=== PATIENT | male | born 1980 | race African-American/Black ===

== ENCOUNTER 2017-05-14 12:17 | Inpatient (IN) | payer MEDICAID ==
[~2017-05-14] VITALS: Ht 193 cm; Wt 122.5 kg
[~2017-05-14 12:17] MED LIST: QUET400T12 PO
[2017-05-14 13:47] LABS: BASOPHILS % (AUTO) 1.3 % (0.0-2.0); EOSINOPHILS % (AUTO) 0.4 % (1.0-6.0); HEMATOCRIT 46.2 % (41-53); HEMOGLOBIN 15.3 g/dL (13.5-17.5); LYMPHOCYTES # (AUTO) 2.2 K/uL (1.0-4.8); LYMPHOCYTES % (AUTO) 39.5 % (22.0-44.0); MEAN CORPUSCULAR HEMOGLOBIN 28.3 pg (26.0-34.0); MEAN CORPUSCULAR HGB CONC 33.1 G/dL (31.0-37.0); MEAN CORPUSCULAR VOLUME 86 fL (80-100); MONOCYTES # (AUTO) 0.7 K/uL (0.1-1.0); MONOCYTES % (AUTO) 11.7 % (2.0-9.0); NEUTROPHILS # (AUTO) 2.6 K/uL (1.8-7.7); NEUTROPHILS % (AUTO) 47.1 % (40.0-70.0); PLATELET COUNT (AUTO) 200 K/uL (150-450); RED BLOOD CELL COUNT(AUTO) 5.41 MIL/uL (4.50-5.90); RED CELL DISTRIBUTION WIDTH 14.1 % (11.5-14.5)
[2017-05-14 13:58] LABS: ANION GAP 10 mmol/L (8-16); CALCIUM, TOTAL 8.9 mg/dL (8.8-10.5); CARBON DIOXIDE 26 mmol/L (22-29); CHLORIDE 98 mmol/L (98-107); GLOMERULAR FILTR. RATE CALC 59 mL/min (>60); GLUCOSE,RANDOM 104 mg/dL (70-110); POTASSIUM 4.4 mmol/L (3.5-5.1); SODIUM SERUM 134 mmol/L (136-145); UREA NITROGEN, BLOOD 21 mg/dL (7-18)
[2017-05-14 14:05] LABS: ALANINE AMINOTRANSFERASE 95 U/L (12-78); ALBUMIN 3.6 g/dL (3.4-5.0); ALKALINE PHOSPHATASE 52 U/L (46-116); ASPARTATE AMINOTRANSFERASE 43 U/L (15-37); BILIRUBIN,TOTAL 2.5 mg/dL (0.1-1.0); TOTAL PROTEIN, SERUM 7.1 g/dL (6.4-8.2)
[2017-05-14 14:09] LABS: AMPHET/METH SCREEN,URINE POSITIVE (NEGATIVE); BARBITURATE SCREEN, URINE NEGATIVE (NEGATIVE); BENZODIAZEPINES SCREEN,URINE NEGATIVE (NEGATIVE); CANNABINOID SCREEN,URINE NEGATIVE (NEGATIVE); COCAINE SCREEN,URINE NEGATIVE (NEGATIVE); METHADONE SCREEN, URINE NEGATIVE (NEGATIVE); OPIATE SCREEN,URINE NEGATIVE (NEGATIVE)
[2017-05-14 14:10] LABS: PHENCYCLIDINE SCREEN,URINE NEGATIVE (NEGATIVE)
[2017-05-14] MEDS ORDERED: DIVA250T4 PO (14:44)
[2017-05-14] MEDS: LORazepam 2 MG TABLET PO PRN (17:22)
[2017-05-14] MEDS: HALOPERIDOL 5 MG TABLET PO PRN (20:59)
[2017-05-15 07:03] VITALS: BP 114/75
[2017-05-15 08:30] VITALS: BP 106/74
[2017-05-15] MEDS: HALOPERIDOL 5 MG TABLET PO PRN (08:30)
[2017-05-15] MEDS: LORazepam 2 MG TABLET PO PRN ×2 (08:30→17:39)
[2017-05-15] MEDS ORDERED: QUET200T PO (13:34)
[2017-05-15] MEDS ORDERED: DIVA500T35 PO (13:34)
[2017-05-15 16:14] VITALS: BP 116/73
[2017-05-15] MEDS: QUEtiapine FUMARATE 300 MG TABLET PO SCH (20:51)
[2017-05-15] MEDS: ZOLPIDEM TARTRATE 10 MG TABLET PO PRN (20:51)
[2017-05-16 06:44] VITALS: BP 125/66
[2017-05-16 08:32] VITALS: BP 138/79
[2017-05-16] MEDS: LORazepam 2 MG TABLET PO PRN ×2 (08:39→17:09)
[2017-05-16 08:57] LABS: FREE T4 (FREE THYROXINE) 1.19 ng/dL (0.76-1.46); THYROID STIMULATING HORMONE 0.67 uIU/mL (0.36-3.74)
[2017-05-16 16:00] VITALS: BP 130/75
[2017-05-16] MEDS: QUEtiapine FUMARATE 300 MG TABLET PO SCH (20:41)
[2017-05-16] MEDS: ZOLPIDEM TARTRATE 10 MG TABLET PO PRN (20:42)
[2017-05-17 06:01] VITALS: BP 115/70
[2017-05-17 08:29] VITALS: BP 122/74
[2017-05-17 16:00] VITALS: BP 114/66
[2017-05-17] MEDS: LORazepam 2 MG TABLET PO PRN (17:34)
[2017-05-17] MEDS ORDERED: ALBUTEROL SULFATE HFA 90 MCG/PUFF 8 GM INHALER IH PRN (18:15)
[2017-05-17] MEDS: ZOLPIDEM TARTRATE 10 MG TABLET PO PRN (20:43)
[2017-05-17] MEDS: QUEtiapine FUMARATE 300 MG TABLET PO SCH (20:43)
[2017-05-18 02:33] VITALS: BP 116/69
[2017-05-18 08:43] VITALS: BP 124/80
[2017-05-18 16:00] VITALS: BP 121/87
[2017-05-18] MEDS: LORazepam 2 MG TABLET PO PRN (17:43)
[2017-05-18] MEDS: ZOLPIDEM TARTRATE 10 MG TABLET PO PRN (21:24)
[2017-05-18] MEDS: QUEtiapine FUMARATE 300 MG TABLET PO SCH (21:24)
[2017-05-19 05:20] VITALS: BP 127/85
[2017-05-19 08:15] VITALS: BP 119/84
[2017-05-19] MEDS: HALOPERIDOL 5 MG TABLET PO PRN (16:30)
[2017-05-19] MEDS: QUEtiapine FUMARATE 200 MG TABLET PO SCH (16:30)
[2017-05-19] MEDS: LORazepam 2 MG TABLET PO PRN (16:30)
[2017-05-19 16:38] VITALS: BP 117/70
[2017-05-20 06:30] VITALS: BP 109/75
[2017-05-20 08:17] VITALS: BP 126/80
[2017-05-20] MEDS: QUEtiapine FUMARATE 200 MG TABLET PO SCH ×3 (09:20→17:08)
[2017-05-20 16:07] VITALS: BP 113/69
[2017-05-20] MEDS: LORazepam 2 MG TABLET PO PRN (17:08)
[2017-05-20] MEDS: HALOPERIDOL 5 MG TABLET PO PRN (17:08)
[2017-05-20] MEDS: ZOLPIDEM TARTRATE 10 MG TABLET PO PRN (20:58)
[2017-05-21 06:48] VITALS: BP 121/78
[2017-05-21 08:36] VITALS: BP 118/65
[2017-05-21] MEDS: QUEtiapine FUMARATE 200 MG TABLET PO SCH ×3 (09:00→17:00)
[2017-05-21] MEDS ORDERED: PNEUMOCOCCAL VACCINE POLYVALENT 0.5 ML VIAL [PPSV23] IM ONE (15:15)
== END 2017-05-21 21:21 | disposition short-term general hospital (02) | DRG 750 ==
LOC: EMS 12:18 → B2S 15:33 → B3A 05-15 09:07
PROVIDERS: ATTEND Psychiatry & Neurology Child & Adolescent Psychiatry
PROC: 3E0234Z Introduction of Serum, Toxoid and Vaccine into Muscle, Percutaneous Approach (ICD-10-PCS; principal; 2017-05-21)
DX: F25.9 Schizoaffective disorder, unspecified (principal); I11.0 Hypertensive heart disease with heart failure; I50.9 Heart failure, unspecified; F15.10 Other stimulant abuse, uncomplicated; F17.200 Nicotine dependence, unspecified, uncomplicated; F23 Brief psychotic disorder; F41.9 Anxiety disorder, unspecified; F31.9 Bipolar disorder, unspecified; Z91.14 Patient's other noncompliance with medication regimen; Z91.5 Personal history of self-harm; Z23 Encounter for immunization
CPT/HCPCS: 80074; 82652; 84439; 84443; 99285; 99406; G0480; J3535

== ENCOUNTER 2017-05-21 09:58 | Inpatient (IN) | payer MEDICAID ==
[~2017-05-21] VITALS: Ht 190.5 cm; Wt 130.7 kg
[~2017-05-21 09:58] MED LIST changes: +DIVA500T35 PO; +QUET200T PO; -QUET400T12 PO
[2017-05-21 10:28] LABS: BASOPHILS % (AUTO) 0.9 % (0.0-2.0); HEMATOCRIT 42.6 % (41-53); LYMPHOCYTES % (AUTO) 33.9 % (22.0-44.0); MEAN CORPUSCULAR HEMOGLOBIN 28.2 pg (26.0-34.0); MEAN CORPUSCULAR HGB CONC 32.8 G/dL (31.0-37.0); MEAN CORPUSCULAR VOLUME 86 fL (80-100); MONOCYTES # (AUTO) 0.9 K/uL (0.1-1.0); MONOCYTES % (AUTO) 14.9 % (2.0-9.0); NEUTROPHILS # (AUTO) 2.9 K/uL (1.8-7.7); NEUTROPHILS % (AUTO) 49.3 % (40.0-70.0); PLATELET COUNT (AUTO) 179 K/uL (150-450); RED BLOOD CELL COUNT(AUTO) 4.95 MIL/uL (4.50-5.90); RED CELL DISTRIBUTION WIDTH 14.2 % (11.5-14.5)
[2017-05-21 10:40] LABS: ANION GAP 11 mmol/L (8-16); CALCIUM, TOTAL 8.2 mg/dL (8.8-10.5); CARBON DIOXIDE 19 mmol/L (22-29); CHLORIDE 109 mmol/L (98-107); CREATININE 1.25 mg/dL (0.60-1.30); GLOMERULAR FILTR. RATE CALC > 60 mL/min (>60); GLUCOSE,RANDOM 107 mg/dL (70-110); POTASSIUM 4.5 mmol/L (3.5-5.1); SODIUM SERUM 139 mmol/L (136-145); UREA NITROGEN, BLOOD 23 mg/dL (7-18)
[2017-05-21 10:46] LABS: ALANINE AMINOTRANSFERASE 236 U/L (12-78); ALBUMIN 3.1 g/dL (3.4-5.0); ALKALINE PHOSPHATASE 74 U/L (46-116); ASPARTATE AMINOTRANSFERASE 121 U/L (15-37); BILIRUBIN,TOTAL 2.4 mg/dL (0.1-1.0); TOTAL PROTEIN, SERUM 6.5 g/dL (6.4-8.2)
[2017-05-21 11:02] LABS: B-TYPE NATRIURETIC PEPTIDE 551 pg/mL (0-100)
[2017-05-21 11:19] LABS: INFLUENZA TYPE A NEGATIVE FOR TYPE A (NEGATIVE); INFLUENZA TYPE B NEGATIVE FOR TYPE B (NEGATIVE)
[2017-05-21] MEDS ORDERED: IOVERSOL 350 MG/ML 150 ML VIAL ONE (11:22)
[2017-05-21 12:18] LABS: THYROID STIMULATING HORMONE 2.63 uIU/mL (0.36-3.74)
[2017-05-21] MEDS ORDERED: ACETAMINOPHEN 325 MG TABLET PO PRN ×2 (13:00→13:15)
[2017-05-21] MEDS ORDERED: FUROSEMIDE 40 MG/4 ML VIAL IVP ONE (13:00)
[2017-05-21] MEDS ORDERED: 0.9% SODIUM CHLORIDE 10 ML SYRINGE IVP PRN (13:00)
[2017-05-21] MEDS ORDERED: ONDANSETRON HCL 4 MG/2 ML VIAL IVP PRN ×2 (13:00→13:15)
[2017-05-21] MEDS ORDERED: BISACODYL 10 MG RECTAL RECTAL SUPPOSITORY PR PRN (13:15)
[2017-05-21] MEDS ORDERED: MAGNESIUM HYDROXIDE SUSPENSION 30 ML UDCUP PO PRN (13:15)
[2017-05-21 14:32] VITALS: BP 121/74
[2017-05-21] MEDS: HEPARIN SODIUM,PORCINE 5,000 UNITS/ML VIAL SQ SCH (16:50)
[2017-05-21 19:37] VITALS: BP 133/94
[2017-05-21] MEDS ORDERED: OXYGEN THERAPY IH SCH (20:00)
[2017-05-21] MEDS: FUROSEMIDE 20 MG/2 ML VIAL IVP SCH (20:03)
[2017-05-21] MEDS: DOCUSATE SODIUM 100 MG CAPSULE PO SCH ×2 (20:03→20:06)
[2017-05-21 23:30] VITALS: BP 125/72
[2017-05-22 05:05] VITALS: BP 127/89
[2017-05-22 07:36] VITALS: BP 126/78
[2017-05-22] MEDS: DOCUSATE SODIUM 100 MG CAPSULE PO SCH ×2 (08:55→20:32)
[2017-05-22] MEDS: PANTOPRAZOLE SODIUM 40 MG DR TABLET PO SCH (08:55)
[2017-05-22] MEDS: HEPARIN SODIUM,PORCINE 5,000 UNITS/ML VIAL SQ SCH ×4 (08:55→23:43)
[2017-05-22] MEDS: FUROSEMIDE 20 MG/2 ML VIAL IVP SCH ×2 (08:55→20:33)
[2017-05-22 11:34] VITALS: BP 118/76
[2017-05-22 15:21] VITALS: BP 122/82
[2017-05-22] MEDS: LISINOPRIL 5 MG TABLET PO SCH (18:20)
[2017-05-22 19:15] VITALS: BP 133/60
[2017-05-22] MEDS: CARVEDILOL 6.25 MG TABLET PO SCH (20:32)
[2017-05-22 22:40] VITALS: BP 126/78
[2017-05-22] MEDS ORDERED: 0.9% SODIUM CHLORIDE 5 ML NEB SOLUTION NEB ONE (22:58)
[2017-05-22] MEDS ORDERED: LEVALBUTEROL HCL 1.25 MG/0.5 ML NEB SOLUTION NEB PRN (23:00)
[2017-05-22 23:08] LABS: GLUCOMETER DEV NAME(LOC) 5N 1N; GLUCOSE,POINT OF CARE 114 MG/DL (70-110)
[2017-05-22 23:37] LABS: CREATININE 1.93 mg/dL (0.60-1.30); POTASSIUM 4.7 mmol/L (3.5-5.1)
[2017-05-22] MEDS: ZOLPIDEM TARTRATE 5 MG TABLET PO PRN (23:44)
[2017-05-23 04:57] VITALS: BP 122/69
[2017-05-23 06:09] LABS: EOSINOPHILS % (AUTO) 0.8 % (1.0-6.0); HEMOGLOBIN 13.7 g/dL (13.5-17.5); LYMPHOCYTES # (AUTO) 1.8 K/uL (1.0-4.8); LYMPHOCYTES % (AUTO) 27.7 % (22.0-44.0); MEAN CORPUSCULAR HEMOGLOBIN 27.8 pg (26.0-34.0); MEAN CORPUSCULAR HGB CONC 32.6 G/dL (31.0-37.0); MEAN CORPUSCULAR VOLUME 85 fL (80-100); MONOCYTES # (AUTO) 0.8 K/uL (0.1-1.0); MONOCYTES % (AUTO) 11.9 % (2.0-9.0); NEUTROPHILS # (AUTO) 3.8 K/uL (1.8-7.7); NEUTROPHILS % (AUTO) 58.6 % (40.0-70.0); PLATELET COUNT (AUTO) 188 K/uL (150-450); RED BLOOD CELL COUNT(AUTO) 4.92 MIL/uL (4.50-5.90); RED CELL DISTRIBUTION WIDTH 14.5 % (11.5-14.5)
[2017-05-23 07:00] LABS: CALCIUM, TOTAL 8.5 mg/dL (8.8-10.5); CREATININE 1.7 mg/dL (0.60-1.30); POTASSIUM 4.7 mmol/L (3.5-5.1)
[2017-05-23] MEDS: HEPARIN SODIUM,PORCINE 5,000 UNITS/ML VIAL SQ SCH ×2 (08:55→16:32)
[2017-05-23] MEDS: CARVEDILOL 6.25 MG TABLET PO SCH ×2 (08:58→20:54)
[2017-05-23] MEDS: PANTOPRAZOLE SODIUM 40 MG DR TABLET PO SCH (08:58)
[2017-05-23] MEDS: LISINOPRIL 5 MG TABLET PO SCH (08:58)
[2017-05-23] MEDS: FUROSEMIDE 20 MG/2 ML VIAL IVP SCH ×2 (08:58→20:54)
[2017-05-23] MEDS: DOCUSATE SODIUM 100 MG CAPSULE PO SCH ×2 (08:58→20:54)
[2017-05-23 11:07] VITALS: BP 116/74
[2017-05-23 15:27] VITALS: BP 113/85
[2017-05-23 19:10] VITALS: BP 119/69
[2017-05-23 21:35] LABS: AMPHET/METH SCREEN,URINE NEGATIVE (NEGATIVE); BARBITURATE SCREEN, URINE NEGATIVE (NEGATIVE); BENZODIAZEPINES SCREEN,URINE NEGATIVE (NEGATIVE); CANNABINOID SCREEN,URINE NEGATIVE (NEGATIVE); COCAINE SCREEN,URINE NEGATIVE (NEGATIVE); METHADONE SCREEN, URINE NEGATIVE (NEGATIVE); OPIATE SCREEN,URINE NEGATIVE (NEGATIVE)
[2017-05-23 21:37] LABS: PHENCYCLIDINE SCREEN,URINE NEGATIVE (NEGATIVE)
[2017-05-23 23:19] VITALS: BP 108/74
[2017-05-24 04:56] VITALS: BP 112/76
[2017-05-24 07:17] VITALS: BP 97/61
[2017-05-24 07:26] LABS: ALBUMIN 2.9 g/dL (3.4-5.0); BILIRUBIN,TOTAL 4.1 mg/dL (0.1-1.0); CALCIUM, TOTAL 8.6 mg/dL (8.8-10.5); CREATININE 1.76 mg/dL (0.60-1.30); POTASSIUM 4.7 mmol/L (3.5-5.1); TOTAL PROTEIN, SERUM 5.9 g/dL (6.4-8.2)
[2017-05-24 07:37] LABS: BASOPHILS % (AUTO) 0.6 % (0.0-2.0); EOSINOPHILS % (AUTO) 0.4 % (1.0-6.0); HEMATOCRIT 43.6 % (41-53); HEMOGLOBIN 14.4 g/dL (13.5-17.5); LYMPHOCYTES # (AUTO) 1.8 K/uL (1.0-4.8); LYMPHOCYTES % (AUTO) 28.1 % (22.0-44.0); MEAN CORPUSCULAR VOLUME 85 fL (80-100); MONOCYTES # (AUTO) 0.8 K/uL (0.1-1.0); MONOCYTES % (AUTO) 13.4 % (2.0-9.0); NEUTROPHILS # (AUTO) 3.6 K/uL (1.8-7.7); NEUTROPHILS % (AUTO) 57.5 % (40.0-70.0); PLATELET COUNT (AUTO) 185 K/uL (150-450); RED BLOOD CELL COUNT(AUTO) 5.13 MIL/uL (4.50-5.90); RED CELL DISTRIBUTION WIDTH 14.2 % (11.5-14.5)
[2017-05-24] MEDS: FUROSEMIDE 20 MG/2 ML VIAL IVP SCH ×2 (08:09→20:44)
[2017-05-24] MEDS: PANTOPRAZOLE SODIUM 40 MG DR TABLET PO SCH (08:09)
[2017-05-24] MEDS: DOCUSATE SODIUM 100 MG CAPSULE PO SCH ×2 (08:10→20:45)
[2017-05-24] MEDS: HEPARIN SODIUM,PORCINE 5,000 UNITS/ML VIAL SQ SCH ×4 (08:10→23:22)
[2017-05-24] MEDS: LISINOPRIL 5 MG TABLET PO SCH (08:19)
[2017-05-24] MEDS: CARVEDILOL 6.25 MG TABLET PO SCH ×2 (08:19→20:44)
[2017-05-24 11:15] VITALS: BP 122/76
[2017-05-24] MEDS ORDERED: MEBROFENIN TC99M/MCL ISOTOPE 1 EA INJ INJ ONE (12:35)
[2017-05-24 19:19] VITALS: BP 98/56
[2017-05-24 20:41] VITALS: BP 107/80
[2017-05-24 23:18] VITALS: BP 130/73
[2017-05-25 04:32] VITALS: BP 117/78
[2017-05-25 06:40] LABS: BASOPHILS % (AUTO) 1.1 % (0.0-2.0); EOSINOPHILS % (AUTO) 0.5 % (1.0-6.0); HEMOGLOBIN 13.9 g/dL (13.5-17.5); LYMPHOCYTES # (AUTO) 2.8 K/uL (1.0-4.8); LYMPHOCYTES % (AUTO) 36.2 % (22.0-44.0); MEAN CORPUSCULAR HGB CONC 33.1 G/dL (31.0-37.0); MEAN CORPUSCULAR VOLUME 85 fL (80-100); MONOCYTES # (AUTO) 1.1 K/uL (0.1-1.0); MONOCYTES % (AUTO) 13.9 % (2.0-9.0); NEUTROPHILS # (AUTO) 3.7 K/uL (1.8-7.7); NEUTROPHILS % (AUTO) 48.3 % (40.0-70.0); PLATELET COUNT (AUTO) 198 K/uL (150-450); RED BLOOD CELL COUNT(AUTO) 4.98 MIL/uL (4.50-5.90); RED CELL DISTRIBUTION WIDTH 14.5 % (11.5-14.5)
[2017-05-25 06:55] LABS: CALCIUM, TOTAL 8.3 mg/dL (8.8-10.5); CREATININE 1.69 mg/dL (0.60-1.30); POTASSIUM 3.7 mmol/L (3.5-5.1)
[2017-05-25 07:28] VITALS: BP 121/82
[2017-05-25] MEDS: PANTOPRAZOLE SODIUM 40 MG DR TABLET PO SCH (07:41)
[2017-05-25] MEDS: CARVEDILOL 6.25 MG TABLET PO SCH (07:41)
[2017-05-25] MEDS: DOCUSATE SODIUM 100 MG CAPSULE PO SCH ×2 (07:41→20:10)
[2017-05-25] MEDS: LISINOPRIL 5 MG TABLET PO SCH (07:41)
[2017-05-25] MEDS: FUROSEMIDE 20 MG/2 ML VIAL IVP SCH (07:47)
[2017-05-25] MEDS: HEPARIN SODIUM,PORCINE 5,000 UNITS/ML VIAL SQ SCH ×2 (07:47→16:00)
[2017-05-25 15:52] VITALS: BP 119/91
[2017-05-25] MEDS: LORazepam 2 MG/ML VIAL IVP PRN (17:29)
[2017-05-25 19:58] VITALS: BP 134/64
[2017-05-25] MEDS: FUROSEMIDE 40 MG TABLET PO SCH (20:10)
[2017-05-25] MEDS: CARVEDILOL 12.5 MG TABLET PO SCH (20:11)
[2017-05-25 23:27] VITALS: BP 145/63
[2017-05-26] MEDS: LORazepam 2 MG/ML VIAL IVP PRN ×2 (01:24→20:27)
[2017-05-26 07:27] LABS: ALBUMIN 2.9 g/dL (3.4-5.0); BILIRUBIN,TOTAL 4.1 mg/dL (0.1-1.0); CALCIUM, TOTAL 8.3 mg/dL (8.8-10.5); CREATININE 1.65 mg/dL (0.60-1.30); POTASSIUM 4.3 mmol/L (3.5-5.1)
[2017-05-26] MEDS: HEPARIN SODIUM,PORCINE 5,000 UNITS/ML VIAL SQ SCH ×3 (08:00→16:00)
[2017-05-26 08:05] VITALS: BP 95/65
[2017-05-26] MEDS: DOCUSATE SODIUM 100 MG CAPSULE PO SCH ×2 (08:32→20:26)
[2017-05-26] MEDS: FUROSEMIDE 40 MG TABLET PO SCH ×2 (08:32→20:26)
[2017-05-26] MEDS: PANTOPRAZOLE SODIUM 40 MG DR TABLET PO SCH (08:33)
[2017-05-26] MEDS: CARVEDILOL 12.5 MG TABLET PO SCH ×2 (09:00→20:26)
[2017-05-26] MEDS: LISINOPRIL 5 MG TABLET PO SCH (09:00)
[2017-05-26 11:26] VITALS: BP 141/61
[2017-05-26 15:23] VITALS: BP 109/80
[2017-05-26 19:37] VITALS: BP 124/60
[2017-05-26] MEDS: MORPHINE SULFATE 2 MG/ML SYRINGE IVP PRN (20:26)
[2017-05-27] VITALS (7 sets, daily range): BP systolic 100–133; BP diastolic 60–86
[2017-05-27] MEDS: MORPHINE SULFATE 2 MG/ML SYRINGE IVP PRN ×2 (03:49→11:04)
[2017-05-27] MEDS: HEPARIN SODIUM,PORCINE 5,000 UNITS/ML VIAL SQ SCH ×5 (08:00→23:36)
[2017-05-27 08:03] LABS: BASOPHILS % (AUTO) 0.5 % (0.0-2.0); EOSINOPHILS % (AUTO) 1.1 % (1.0-6.0); HEMATOCRIT 41.6 % (41-53); HEMOGLOBIN 13.6 g/dL (13.5-17.5); LYMPHOCYTES # (AUTO) 2.7 K/uL (1.0-4.8); LYMPHOCYTES % (AUTO) 40.8 % (22.0-44.0); MEAN CORPUSCULAR HEMOGLOBIN 27.8 pg (26.0-34.0); MEAN CORPUSCULAR HGB CONC 32.7 G/dL (31.0-37.0); MEAN CORPUSCULAR VOLUME 85 fL (80-100); MONOCYTES % (AUTO) 15.6 % (2.0-9.0); NEUTROPHILS # (AUTO) 2.8 K/uL (1.8-7.7); PLATELET COUNT (AUTO) 203 K/uL (150-450); RED CELL DISTRIBUTION WIDTH 14.3 % (11.5-14.5)
[2017-05-27] MEDS: PANTOPRAZOLE SODIUM 40 MG DR TABLET PO SCH (08:13)
[2017-05-27] MEDS: DOCUSATE SODIUM 100 MG CAPSULE PO SCH ×2 (08:13→19:59)
[2017-05-27] MEDS: CARVEDILOL 12.5 MG TABLET PO SCH ×2 (08:13→19:59)
[2017-05-27] MEDS: FUROSEMIDE 40 MG TABLET PO SCH ×2 (08:13→19:59)
[2017-05-27 08:27] LABS: ALBUMIN 2.9 g/dL (3.4-5.0); BILIRUBIN,TOTAL 3.7 mg/dL (0.1-1.0); CALCIUM, TOTAL 8.3 mg/dL (8.8-10.5); CREATININE 1.57 mg/dL (0.60-1.30); POTASSIUM 3.8 mmol/L (3.5-5.1); TOTAL PROTEIN, SERUM 5.9 g/dL (6.4-8.2)
[2017-05-27] MEDS: LISINOPRIL 5 MG TABLET PO SCH (11:01)
[2017-05-27] MEDS ORDERED: FURO40 PO (13:35)
[2017-05-27] MEDS ORDERED: LISI-660 PO (13:35)
[2017-05-27] MEDS ORDERED: CARV12 PO (13:35)
[2017-05-27] MEDS: LORazepam 2 MG/ML VIAL IVP PRN (19:57)
[2017-05-28] VITALS: BP 110/78
[2017-05-28 07:05] VITALS: BP 102/61
[2017-05-28] MEDS: HEPARIN SODIUM,PORCINE 5,000 UNITS/ML VIAL SQ SCH ×2 (08:00→15:56)
[2017-05-28] MEDS: FUROSEMIDE 40 MG TABLET PO SCH ×2 (08:21→20:29)
[2017-05-28] MEDS: LISINOPRIL 5 MG TABLET PO SCH (08:21)
[2017-05-28] MEDS: DOCUSATE SODIUM 100 MG CAPSULE PO SCH ×2 (08:22→20:28)
[2017-05-28] MEDS: PANTOPRAZOLE SODIUM 40 MG DR TABLET PO SCH (08:22)
[2017-05-28] MEDS: CARVEDILOL 12.5 MG TABLET PO SCH ×2 (08:22→20:28)
[2017-05-28 11:20] VITALS: BP 98/58
[2017-05-28] MEDS: HYDROCODONE/ACETAMINOPHEN 5-325 MG TABLET PO PRN (12:25)
[2017-05-28 15:07] VITALS: BP 146/89
[2017-05-28 15:13] VITALS: BP 99/62
[2017-05-28] MEDS: LORazepam 2 MG/ML VIAL IVP PRN (20:28)
[2017-05-28 20:29] VITALS: BP 114/76
[2017-05-28] MEDS: MORPHINE SULFATE 2 MG/ML SYRINGE IVP PRN (22:37)
[2017-05-29 06:07] VITALS: BP 146/66
[2017-05-29 07:16] LABS: BASOPHILS % (AUTO) 1.1 % (0.0-2.0); EOSINOPHILS % (AUTO) 0.3 % (1.0-6.0); HEMATOCRIT 42.7 % (41-53); HEMOGLOBIN 13.8 g/dL (13.5-17.5); LYMPHOCYTES # (AUTO) 1.8 K/uL (1.0-4.8); MEAN CORPUSCULAR HEMOGLOBIN 27.5 pg (26.0-34.0); MEAN CORPUSCULAR HGB CONC 32.2 G/dL (31.0-37.0); MEAN CORPUSCULAR VOLUME 85 fL (80-100); MONOCYTES # (AUTO) 0.7 K/uL (0.1-1.0); MONOCYTES % (AUTO) 11.7 % (2.0-9.0); NEUTROPHILS # (AUTO) 3.1 K/uL (1.8-7.7); NEUTROPHILS % (AUTO) 54.9 % (40.0-70.0); PLATELET COUNT (AUTO) 195 K/uL (150-450); RED CELL DISTRIBUTION WIDTH 14.8 % (11.5-14.5)
[2017-05-29] MEDS: HEPARIN SODIUM,PORCINE 5,000 UNITS/ML VIAL SQ SCH ×4 (08:00→20:54)
[2017-05-29 08:04] LABS: ALANINE AMINOTRANSFERASE 1349 U/L (12-78); ALKALINE PHOSPHATASE 142 U/L (46-116); ANION GAP 10 mmol/L (8-16); ASPARTATE AMINOTRANSFERASE 916 U/L (15-37); BILIRUBIN,TOTAL 4.3 mg/dL (0.1-1.0); CALCIUM, TOTAL 8.3 mg/dL (8.8-10.5); CARBON DIOXIDE 24 mmol/L (22-29); CHLORIDE 99 mmol/L (98-107); CREATININE 1.55 mg/dL (0.60-1.30); GLOMERULAR FILTR. RATE CALC > 60 mL/min (>60); GLUCOSE,RANDOM 78 mg/dL (70-110); POTASSIUM 4.4 mmol/L (3.5-5.1); SODIUM SERUM 133 mmol/L (136-145); TOTAL PROTEIN, SERUM 6.2 g/dL (6.4-8.2); UREA NITROGEN, BLOOD 24 mg/dL (7-18)
[2017-05-29] MEDS: DOCUSATE SODIUM 100 MG CAPSULE PO SCH ×2 (08:16→20:50)
[2017-05-29] MEDS: PANTOPRAZOLE SODIUM 40 MG DR TABLET PO SCH (08:16)
[2017-05-29 08:18] VITALS: BP 94/53
[2017-05-29] MEDS: FUROSEMIDE 40 MG TABLET PO SCH ×2 (08:20→20:50)
[2017-05-29] MEDS: LISINOPRIL 5 MG TABLET PO SCH (08:20)
[2017-05-29] MEDS: CARVEDILOL 12.5 MG TABLET PO SCH ×2 (08:20→20:50)
[2017-05-29 20:22] VITALS: BP 111/67
[2017-05-29] MEDS: LORazepam 2 MG/ML VIAL IVP PRN (20:53)
[2017-05-30 00:07] VITALS: BP 115/58
[2017-05-30] MEDS: ZOLPIDEM TARTRATE 5 MG TABLET PO PRN (00:27)
[2017-05-30] MEDS: MORPHINE SULFATE 2 MG/ML SYRINGE IVP PRN (00:27)
[2017-05-30 07:04] VITALS: BP 111/70
[2017-05-30 08:17] LABS: BASOPHILS % (AUTO) 0.7 % (0.0-2.0); EOSINOPHILS % (AUTO) 2.3 % (1.0-6.0); HEMOGLOBIN 11.5 g/dL (13.5-17.5); LYMPHOCYTES # (AUTO) 0.8 K/uL (1.0-4.8); LYMPHOCYTES % (AUTO) 13.9 % (22.0-44.0); MEAN CORPUSCULAR HEMOGLOBIN 28.9 pg (26.0-34.0); MEAN CORPUSCULAR HGB CONC 32.9 G/dL (31.0-37.0); MEAN CORPUSCULAR VOLUME 88 fL (80-100); MONOCYTES # (AUTO) 0.6 K/uL (0.1-1.0); MONOCYTES % (AUTO) 9.9 % (2.0-9.0); NEUTROPHILS # (AUTO) 4.4 K/uL (1.8-7.7); NEUTROPHILS % (AUTO) 73.2 % (40.0-70.0); PLATELET COUNT (AUTO) 204 K/uL (150-450); RED BLOOD CELL COUNT(AUTO) 3.99 MIL/uL (4.50-5.90); RED CELL DISTRIBUTION WIDTH 15.3 % (11.5-14.5)
[2017-05-30 08:34] LABS: ALBUMIN 2.8 g/dL (3.4-5.0); ALKALINE PHOSPHATASE 114 U/L (46-116); ANION GAP 5 mmol/L (8-16); BILIRUBIN,TOTAL 0.9 mg/dL (0.1-1.0); CALCIUM, TOTAL 8.2 mg/dL (8.8-10.5); CARBON DIOXIDE 30 mmol/L (22-29); CHLORIDE 106 mmol/L (98-107); CREATININE 1.53 mg/dL (0.60-1.30); GLOMERULAR FILTR. RATE CALC > 60 mL/min (>60); GLUCOSE,RANDOM 111 mg/dL (70-110); SODIUM SERUM 141 mmol/L (136-145); TOTAL PROTEIN, SERUM 6.1 g/dL (6.4-8.2); UREA NITROGEN, BLOOD 24 mg/dL (7-18)
[2017-05-30 08:56] LABS: ALANINE AMINOTRANSFERASE 41 U/L (12-78); ASPARTATE AMINOTRANSFERASE 31 U/L (15-37)
[2017-05-30] MEDS: FUROSEMIDE 40 MG TABLET PO SCH ×2 (09:49→20:49)
[2017-05-30] MEDS: PANTOPRAZOLE SODIUM 40 MG DR TABLET PO SCH (09:49)
[2017-05-30] MEDS: DOCUSATE SODIUM 100 MG CAPSULE PO SCH ×2 (09:49→20:49)
[2017-05-30] MEDS: LISINOPRIL 5 MG TABLET PO SCH (09:49)
[2017-05-30] MEDS: HEPARIN SODIUM,PORCINE 5,000 UNITS/ML VIAL SQ SCH ×3 (09:49→23:58)
[2017-05-30] MEDS: CARVEDILOL 12.5 MG TABLET PO SCH ×2 (09:51→21:00)
[2017-05-30 11:37] VITALS: BP 94/59
[2017-05-30 13:24] VITALS: BP 155/79
[2017-05-30 15:59] VITALS: BP 139/30
[2017-05-30 19:55] VITALS: BP 104/55
[2017-05-31] VITALS (7 sets, daily range): BP systolic 102–136; BP diastolic 61–88
[2017-05-31] MEDS: LORazepam 2 MG/ML VIAL IVP PRN ×2 (06:14→20:36)
[2017-05-31] MEDS: HEPARIN SODIUM,PORCINE 5,000 UNITS/ML VIAL SQ SCH ×3 (08:00→23:21)
[2017-05-31] MEDS: FUROSEMIDE 40 MG TABLET PO SCH ×2 (09:00→20:36)
[2017-05-31] MEDS: CARVEDILOL 12.5 MG TABLET PO SCH ×2 (09:00→20:36)
[2017-05-31] MEDS: DOCUSATE SODIUM 100 MG CAPSULE PO SCH ×2 (09:00→20:36)
[2017-05-31] MEDS: PANTOPRAZOLE SODIUM 40 MG DR TABLET PO SCH (09:00)
[2017-05-31] MEDS: LISINOPRIL 5 MG TABLET PO SCH (09:00)
[2017-05-31] MEDS: ZOLPIDEM TARTRATE 5 MG TABLET PO PRN (23:20)
[2017-05-31] MEDS: HYDROCODONE/ACETAMINOPHEN 5-325 MG TABLET PO PRN (23:20)
[2017-06-01 04:43] VITALS: BP 97/62
[2017-06-01 06:39] LABS: BASOPHILS % (AUTO) 0.6 % (0.0-2.0); EOSINOPHILS % (AUTO) 0.9 % (1.0-6.0); HEMOGLOBIN 13.2 g/dL (13.5-17.5); LYMPHOCYTES # (AUTO) 2.3 K/uL (1.0-4.8); LYMPHOCYTES % (AUTO) 43.9 % (22.0-44.0); MEAN CORPUSCULAR HEMOGLOBIN 27.5 pg (26.0-34.0); MEAN CORPUSCULAR HGB CONC 32.2 G/dL (31.0-37.0); MEAN CORPUSCULAR VOLUME 85 fL (80-100); MONOCYTES # (AUTO) 0.8 K/uL (0.1-1.0); MONOCYTES % (AUTO) 15.6 % (2.0-9.0); PLATELET COUNT (AUTO) 183 K/uL (150-450); RED CELL DISTRIBUTION WIDTH 14.5 % (11.5-14.5)
[2017-06-01 07:02] LABS: ALANINE AMINOTRANSFERASE 986 U/L (12-78); ALBUMIN 2.9 g/dL (3.4-5.0); ALKALINE PHOSPHATASE 141 U/L (46-116); ANION GAP 8 mmol/L (8-16); ASPARTATE AMINOTRANSFERASE 411 U/L (15-37); BILIRUBIN,TOTAL 3.6 mg/dL (0.1-1.0); CALCIUM, TOTAL 8.4 mg/dL (8.8-10.5); CARBON DIOXIDE 27 mmol/L (22-29); CHLORIDE 101 mmol/L (98-107); CREATININE 1.41 mg/dL (0.60-1.30); GLOMERULAR FILTR. RATE CALC > 60 mL/min (>60); GLUCOSE,RANDOM 87 mg/dL (70-110); POTASSIUM 3.8 mmol/L (3.5-5.1); SODIUM SERUM 136 mmol/L (136-145); TOTAL PROTEIN, SERUM 6.1 g/dL (6.4-8.2); UREA NITROGEN, BLOOD 15 mg/dL (7-18)
[2017-06-01] MEDS: HEPARIN SODIUM,PORCINE 5,000 UNITS/ML VIAL SQ SCH ×4 (08:00→23:36)
[2017-06-01] MEDS: DOCUSATE SODIUM 100 MG CAPSULE PO SCH ×2 (08:15→21:00)
[2017-06-01] MEDS: FUROSEMIDE 40 MG TABLET PO SCH ×2 (08:16→21:00)
[2017-06-01] MEDS: PANTOPRAZOLE SODIUM 40 MG DR TABLET PO SCH (08:16)
[2017-06-01] MEDS: HYDROCODONE/ACETAMINOPHEN 5-325 MG TABLET PO PRN (08:16)
[2017-06-01 08:22] VITALS: BP 116/75
[2017-06-01] MEDS: LISINOPRIL 5 MG TABLET PO SCH ×2 (09:00→13:23)
[2017-06-01] MEDS: CARVEDILOL 12.5 MG TABLET PO SCH ×3 (09:00→21:00)
[2017-06-01 13:12] VITALS: BP 143/73
[2017-06-01 15:53] VITALS: BP 128/76
[2017-06-01 20:07] VITALS: BP 100/77
[2017-06-01] MEDS: QUEtiapine FUMARATE 200 MG TABLET PO SCH (21:00)
[2017-06-01] MEDS: LORazepam 2 MG/ML VIAL IVP PRN (23:36)
[2017-06-01 23:41] VITALS: BP 127/82
[2017-06-02 05:59] VITALS: BP 119/44
[2017-06-02] MEDS ORDERED: LISINOPRIL 10 MG TABLET PO SCH (09:00)
[2017-06-02 10:36] VITALS: BP 115/67
[2017-06-02] MEDS: CARVEDILOL 12.5 MG TABLET PO SCH (10:49)
[2017-06-02] MEDS: QUEtiapine FUMARATE 200 MG TABLET PO SCH (10:49)
[2017-06-02] MEDS: HEPARIN SODIUM,PORCINE 5,000 UNITS/ML VIAL SQ SCH (10:50)
[2017-06-02] MEDS: DOCUSATE SODIUM 100 MG CAPSULE PO SCH (10:50)
[2017-06-02] MEDS: PANTOPRAZOLE SODIUM 40 MG DR TABLET PO SCH (10:50)
[2017-06-02] MEDS: FUROSEMIDE 40 MG TABLET PO SCH (10:50)
[2017-06-02] MEDS ORDERED: LISI-661 PO (15:30)
[2017-06-02 15:36] VITALS: BP 120/75
== END 2017-06-02 16:32 | disposition home or self-care (01) | DRG 194 ==
LOC: EMS 09:59 → 5S 13:45 → UNDODISIN 14:44 → 6N 05-30 18:15
PROVIDERS: ADMIT Internal Medicine; ATTEND Internal Medicine
DX: I13.0 Hypertensive heart and chronic kidney disease with heart failure and stage 1 through stage 4 chronic kidney disease, or unspecified chronic kidney disease (principal); N17.0 Acute kidney failure with tubular necrosis; F25.0 Schizoaffective disorder, bipolar type; I08.1 Rheumatic disorders of both mitral and tricuspid valves; F12.90 Cannabis use, unspecified, uncomplicated; F17.210 Nicotine dependence, cigarettes, uncomplicated; N18.3 Chronic kidney disease, stage 3 (moderate); R63.1 Polydipsia; I42.9 Cardiomyopathy, unspecified; F19.10 Other psychoactive substance abuse, uncomplicated; Z88.0 Allergy status to penicillin; Z91.5 Personal history of self-harm; Z91.19 Patient's noncompliance with other medical treatment and regimen; I50.41 Acute combined systolic (congestive) and diastolic (congestive) heart failure
CPT/HCPCS: 71275; 76700; 78226; 80074; 80307; 82962; 84443; 87804; 93005; 93306; 94640; 96374; 99285; A9537; J1644; J1940; J2060; J2270

== ENCOUNTER 2017-06-04 09:24 | Emergency (ER) | payer MEDICAID ==
[~2017-06-04] VITALS: Ht 193 cm; Wt 95.5 kg
[~2017-06-04 09:24] MED LIST changes: +CARV12 PO; -DIVA500T35 PO; +FURO40 PO; +LISI-661 PO
[2017-06-04 09:59] VITALS: BP 130/99
== END 2017-06-04 11:23 | disposition left against medical advice (07) ==
LOC: EMS 09:26
DX: Z53.21 Procedure and treatment not carried out due to patient leaving prior to being seen by health care provider (principal)

== ENCOUNTER 2017-06-16 23:16 | Inpatient (IN) | payer MEDICAID ==
[~2017-06-16] VITALS: Ht 193 cm; Wt 145.2 kg
[2017-06-16 23:39] LABS: AMPHET/METH SCREEN,URINE NEGATIVE (NEGATIVE); BARBITURATE SCREEN, URINE NEGATIVE (NEGATIVE); BENZODIAZEPINES SCREEN,URINE NEGATIVE (NEGATIVE); CANNABINOID SCREEN,URINE POSITIVE (NEGATIVE); COCAINE SCREEN,URINE NEGATIVE (NEGATIVE); METHADONE SCREEN, URINE NEGATIVE (NEGATIVE); OPIATE SCREEN,URINE NEGATIVE (NEGATIVE)
[2017-06-16 23:45] LABS: PHENCYCLIDINE SCREEN,URINE NEGATIVE (NEGATIVE)
[2017-06-16 23:57] LABS: BASOPHILS % (AUTO) 1.3 % (0.0-2.0); EOSINOPHILS % (AUTO) 1.2 % (1.0-6.0); HEMATOCRIT 40.8 % (41-53); HEMOGLOBIN 13.2 g/dL (13.5-17.5); LYMPHOCYTES # (AUTO) 2.4 K/uL (1.0-4.8); LYMPHOCYTES % (AUTO) 44.4 % (22.0-44.0); MEAN CORPUSCULAR HGB CONC 32.3 G/dL (31.0-37.0); MEAN CORPUSCULAR VOLUME 84 fL (80-100); MONOCYTES # (AUTO) 0.7 K/uL (0.1-1.0); MONOCYTES % (AUTO) 13.4 % (2.0-9.0); NEUTROPHILS # (AUTO) 2.1 K/uL (1.8-7.7); NEUTROPHILS % (AUTO) 39.7 % (40.0-70.0); PLATELET COUNT (AUTO) 185 K/uL (150-450); RED BLOOD CELL COUNT(AUTO) 4.87 MIL/uL (4.50-5.90); RED CELL DISTRIBUTION WIDTH 15.4 % (11.5-14.5)
[2017-06-17 00:10] LABS: ANION GAP 6 mmol/L (8-16); CALCIUM, TOTAL 9.1 mg/dL (8.8-10.5); CARBON DIOXIDE 28 mmol/L (22-29); CHLORIDE 104 mmol/L (98-107); CREATININE 1.48 mg/dL (0.60-1.30); GLOMERULAR FILTR. RATE CALC > 60 mL/min (>60); GLUCOSE,RANDOM 82 mg/dL (70-110); POTASSIUM 4.6 mmol/L (3.5-5.1); SODIUM SERUM 138 mmol/L (136-145); UREA NITROGEN, BLOOD 16 mg/dL (7-18)
[2017-06-17 00:17] LABS: ALANINE AMINOTRANSFERASE 110 U/L (12-78); ALBUMIN 3.2 g/dL (3.4-5.0); ALKALINE PHOSPHATASE 89 U/L (46-116); ASPARTATE AMINOTRANSFERASE 49 U/L (15-37); BILIRUBIN,TOTAL 2.4 mg/dL (0.1-1.0); TOTAL PROTEIN, SERUM 7.1 g/dL (6.4-8.2)
[2017-06-17 00:31] LABS: PLATELET MORPHOLOGY COMMENT GIANT PLTS PRESENT
[2017-06-17] MEDS ORDERED: ZOLPIDEM TARTRATE 10 MG TABLET PO PRN (02:00)
[2017-06-17 03:11] VITALS: BP 124/79
[2017-06-17] MEDS: LORazepam 2 MG TABLET PO PRN ×2 (03:23→10:55)
[2017-06-17] MEDS ORDERED: INFLUENZA VIRUS VACCINE QVS 2017-18 (3YR+)/PF 60 MCG/0.5 ML SYRINGE IM ONE (04:00)
[2017-06-17] MEDS ORDERED: PNEUMOCOCCAL VACCINE POLYVALENT 0.5 ML VIAL [PPSV23] IM ONE (04:00)
[2017-06-17] MEDS: FUROSEMIDE 40 MG TABLET PO SCH ×3 (09:00→17:42)
[2017-06-17 09:05] VITALS: BP 118/91
[2017-06-17] MEDS: LISINOPRIL 10 MG TABLET PO SCH (09:32)
[2017-06-17] MEDS: CARVEDILOL 12.5 MG TABLET PO SCH (09:32)
[2017-06-17] MEDS: HALOPERIDOL 5 MG TABLET PO PRN (09:37)
[2017-06-17 10:56] VITALS: BP 126/86
[2017-06-17] MEDS: QUEtiapine FUMARATE 200 MG TABLET PO SCH ×2 (12:31→17:42)
[2017-06-17 16:11] VITALS: BP 118/72
[2017-06-17] MEDS: ALBUTEROL SULFATE HFA 90 MCG/PUFF 8 GM INHALER IH PRN ×2 (17:51→21:54)
[2017-06-18] MEDS: FUROSEMIDE 40 MG TABLET PO SCH ×2 (09:53→17:16)
[2017-06-18] MEDS: CARVEDILOL 12.5 MG TABLET PO SCH (09:53)
[2017-06-18] MEDS: LISINOPRIL 10 MG TABLET PO SCH (09:53)
[2017-06-18] MEDS: QUEtiapine FUMARATE 200 MG TABLET PO SCH ×3 (09:53→17:16)
[2017-06-18] MEDS: HALOPERIDOL 5 MG TABLET PO PRN (09:53)
[2017-06-18 10:08] VITALS: BP 109/54
[2017-06-18] MEDS ORDERED: GuaiFENesin/D-METHORPHAN [SUGAR-FREE] 200-20MG/10 ML SYRUP UDCUP PO PRN (18:00)
[2017-06-18] MEDS: ALBUTEROL SULFATE HFA 90 MCG/PUFF 8 GM INHALER IH PRN (20:55)
[2017-06-18 21:39] VITALS: BP 121/77
[2017-06-19 06:23] VITALS: BP 132/96
[2017-06-19 08:40] VITALS: BP 134/87
[2017-06-19] MEDS: FUROSEMIDE 40 MG TABLET PO SCH ×2 (09:20→16:31)
[2017-06-19] MEDS: QUEtiapine FUMARATE 200 MG TABLET PO SCH ×3 (09:20→16:31)
[2017-06-19] MEDS: LISINOPRIL 10 MG TABLET PO SCH (09:20)
[2017-06-19] MEDS: CARVEDILOL 12.5 MG TABLET PO SCH (09:20)
[2017-06-19 16:24] VITALS: BP 123/66
[2017-06-19] MEDS: LORazepam 2 MG TABLET PO PRN (20:28)
[2017-06-19] MEDS: HALOPERIDOL 5 MG TABLET PO PRN (20:28)
[2017-06-20] VITALS (7 sets, daily range): BP systolic 109–128; BP diastolic 50–80
[2017-06-20] MEDS: CARVEDILOL 12.5 MG TABLET PO SCH (09:07)
[2017-06-20] MEDS: LISINOPRIL 10 MG TABLET PO SCH (09:07)
[2017-06-20] MEDS: FUROSEMIDE 40 MG TABLET PO SCH ×2 (09:08→16:25)
[2017-06-20] MEDS: QUEtiapine FUMARATE 200 MG TABLET PO SCH ×4 (09:08→16:25)
[2017-06-20] MEDS: ALBUTEROL SULFATE HFA 90 MCG/PUFF 8 GM INHALER IH PRN (12:30)
== END 2017-06-21 02:23 | disposition short-term general hospital (02) | DRG 750 ==
LOC: EMS 23:17 → B2S 06-17 01:53
PROVIDERS: ATTEND Psychiatry & Neurology Child & Adolescent Psychiatry
DX: F25.0 Schizoaffective disorder, bipolar type (principal); I13.0 Hypertensive heart and chronic kidney disease with heart failure and stage 1 through stage 4 chronic kidney disease, or unspecified chronic kidney disease; I50.22 Chronic systolic (congestive) heart failure; D64.9 Anemia, unspecified; N18.9 Chronic kidney disease, unspecified; F12.90 Cannabis use, unspecified, uncomplicated; Z59.0 Homelessness; Z79.899 Other long term (current) drug therapy
CPT/HCPCS: 71046; 87081; 90471; 99285; G0480; J3535

== ENCOUNTER 2017-06-20 23:46 | Inpatient (IN) | payer MEDICAID ==
[~2017-06-20] VITALS: Ht 195.6 cm; Wt 135.1 kg
[2017-06-21] VITALS (7 sets, daily range): BP systolic 106–122; BP diastolic 53–88
[2017-06-21] MEDS ORDERED: ASPIRIN 81 MG CHEWABLE TABLET PO ONE
[2017-06-21] MEDS ORDERED: FUROSEMIDE 40 MG/4 ML VIAL IVP ONE
[2017-06-21 00:11] LABS: BASOPHILS % (AUTO) 1.3 % (0.0-2.0); EOSINOPHILS % (AUTO) 0.8 % (1.0-6.0); HEMATOCRIT 38.4 % (41-53); HEMOGLOBIN 12.6 g/dL (13.5-17.5); LYMPHOCYTES # (AUTO) 2.1 K/uL (1.0-4.8); MEAN CORPUSCULAR HEMOGLOBIN 27.2 pg (26.0-34.0); MEAN CORPUSCULAR HGB CONC 32.9 G/dL (31.0-37.0); MEAN CORPUSCULAR VOLUME 83 fL (80-100); MONOCYTES # (AUTO) 1.1 K/uL (0.1-1.0); MONOCYTES % (AUTO) 14.5 % (2.0-9.0); NEUTROPHILS # (AUTO) 4.3 K/uL (1.8-7.7); NEUTROPHILS % (AUTO) 56.4 % (40.0-70.0); PLATELET COUNT (AUTO) 186 K/uL (150-450); RED BLOOD CELL COUNT(AUTO) 4.65 MIL/uL (4.50-5.90); RED CELL DISTRIBUTION WIDTH 15.6 % (11.5-14.5)
[2017-06-21 00:32] LABS: B-TYPE NATRIURETIC PEPTIDE 1040 pg/mL (0-100)
[2017-06-21 00:34] LABS: ANION GAP 6 mmol/L (8-16); CALCIUM, TOTAL 8.5 mg/dL (8.8-10.5); CARBON DIOXIDE 26 mmol/L (22-29); CHLORIDE 104 mmol/L (98-107); CREATININE 1.64 mg/dL (0.60-1.30); GLOMERULAR FILTR. RATE CALC 57 mL/min (>60); GLUCOSE,RANDOM 85 mg/dL (70-110); POTASSIUM 4.6 mmol/L (3.5-5.1); SODIUM SERUM 136 mmol/L (136-145); UREA NITROGEN, BLOOD 20 mg/dL (7-18)
[2017-06-21 00:58] LABS: ALANINE AMINOTRANSFERASE 105 U/L (12-78); ALKALINE PHOSPHATASE 90 U/L (46-116); ASPARTATE AMINOTRANSFERASE 58 U/L (15-37); BILIRUBIN,TOTAL 2.6 mg/dL (0.1-1.0); CREATINE KINASE MB 2.5 ng/mL (0-5); CREATINE KINASE, TOTAL 279 U/L (39-308); TOTAL PROTEIN, SERUM 6.7 g/dL (6.4-8.2)
[2017-06-21] MEDS ORDERED: 0.9% SODIUM CHLORIDE 10 ML SYRINGE IVP PRN ×2 (02:15→05:00)
[2017-06-21] MEDS ORDERED: ACETAMINOPHEN 325 MG TABLET PO PRN ×2 (02:15→05:00)
[2017-06-21 02:44] LABS: APPEARANCE,URINE CLEAR (CLEAR); BILIRUBIN,URINE NEGATIVE (NEGATIVE); GLUCOSE, URINE (UA) NEGATIVE (NEGATIVE); KETONES,URINE NEGATIVE (NEGATIVE); LEUKOCYTE ESTERASE ,URINE NEGATIVE (NEGATIVE); NITRATE,URINE NEGATIVE (NEGATIVE); OCCULT BLOOD,URINE NEGATIVE (NEGATIVE); PH,URINE 5.5 (5.0-8.0); PROTEIN,URINE NEGATIVE (NEGATIVE)
[2017-06-21] MEDS ORDERED: IPRATROPIUM BROMIDE 0.5 MG/2.5 ML NEB SOLUTION NEB PRN (05:00)
[2017-06-21] MEDS ORDERED: BISACODYL 10 MG RECTAL RECTAL SUPPOSITORY PR PRN (05:00)
[2017-06-21] MEDS ORDERED: ONDANSETRON HCL 4 MG/2 ML VIAL IVP PRN (05:00)
[2017-06-21] MEDS ORDERED: MAGNESIUM HYDROXIDE SUSPENSION 30 ML UDCUP PO PRN (05:00)
[2017-06-21] MEDS ORDERED: ALBUTEROL SULFATE 2.5 MG/0.5 ML NEB SOLUTION NEB PRN (05:00)
[2017-06-21 05:49] LABS: BASOPHILS % (AUTO) 0.7 % (0.0-2.0); EOSINOPHILS % (AUTO) 0.3 % (1.0-6.0); HEMATOCRIT 37.3 % (41-53); HEMOGLOBIN 12.2 g/dL (13.5-17.5); LYMPHOCYTES # (AUTO) 1.9 K/uL (1.0-4.8); LYMPHOCYTES % (AUTO) 26.2 % (22.0-44.0); MEAN CORPUSCULAR HGB CONC 32.8 G/dL (31.0-37.0); MEAN CORPUSCULAR VOLUME 82 fL (80-100); MONOCYTES # (AUTO) 0.8 K/uL (0.1-1.0); MONOCYTES % (AUTO) 11.2 % (2.0-9.0); NEUTROPHILS # (AUTO) 4.4 K/uL (1.8-7.7); NEUTROPHILS % (AUTO) 61.6 % (40.0-70.0); PLATELET COUNT (AUTO) 193 K/uL (150-450); RED BLOOD CELL COUNT(AUTO) 4.53 MIL/uL (4.50-5.90); RED CELL DISTRIBUTION WIDTH 15.1 % (11.5-14.5)
[2017-06-21 06:16] LABS: ANION GAP 10 mmol/L (8-16); CALCIUM, TOTAL 8.5 mg/dL (8.8-10.5); CARBON DIOXIDE 24 mmol/L (22-29); CHLORIDE 103 mmol/L (98-107); CREATININE 1.33 mg/dL (0.60-1.30); GLOMERULAR FILTR. RATE CALC > 60 mL/min (>60); GLUCOSE,RANDOM 105 mg/dL (70-110); POTASSIUM 4.7 mmol/L (3.5-5.1); SODIUM SERUM 137 mmol/L (136-145); UREA NITROGEN, BLOOD 19 mg/dL (7-18)
[2017-06-21 06:23] LABS: ALANINE AMINOTRANSFERASE 102 U/L (12-78); ALKALINE PHOSPHATASE 90 U/L (46-116); ASPARTATE AMINOTRANSFERASE 55 U/L (15-37); BILIRUBIN,TOTAL 2.8 mg/dL (0.1-1.0); CHOL/HDL RATIO 2.9 (4.2-7.3); CHOLESTEROL 119 mg/dL (131-200); HDL CHOLESTEROL 41 mg/dL (40-60); LDL CHOL (CALC.) 70 mg/dL (0-130); PHOSPHORUS 3.9 mg/dL (2.5-4.9); TOTAL PROTEIN, SERUM 6.8 g/dL (6.4-8.2); TRIGLYCERIDES 42 mg/dL (15-150)
[2017-06-21] MEDS: FUROSEMIDE 40 MG/4 ML VIAL IVP SCH ×2 (09:16→22:50)
[2017-06-21] MEDS: HEPARIN SODIUM,PORCINE 5,000 UNITS/ML VIAL SQ SCH ×2 (09:16→22:51)
[2017-06-21] MEDS: CARVEDILOL 12.5 MG TABLET PO SCH ×2 (09:16→22:51)
[2017-06-21] MEDS: DOCUSATE SODIUM 100 MG CAPSULE PO SCH ×2 (09:16→22:51)
[2017-06-21] MEDS: PANTOPRAZOLE SODIUM 40 MG DR TABLET PO SCH (09:16)
[2017-06-21] MEDS ORDERED: SODIUM CHLORIDE 0.9% 500 ML IV ONE (21:31)
[2017-06-21 23:00] LABS: MAGNESIUM 1.9 mg/dL (1.80-2.40); POTASSIUM 4.4 mmol/L (3.5-5.1)
[2017-06-22 05:59] VITALS: BP 113/68
[2017-06-22 08:10] VITALS: BP 101/61
[2017-06-22 11:35] VITALS: BP 112/67
[2017-06-22] MEDS: LISINOPRIL 5 MG TABLET PO SCH (11:38)
[2017-06-22] MEDS: FUROSEMIDE 40 MG/4 ML VIAL IVP SCH ×2 (11:38→20:31)
[2017-06-22] MEDS: HEPARIN SODIUM,PORCINE 5,000 UNITS/ML VIAL SQ SCH ×2 (11:38→20:30)
[2017-06-22] MEDS: PANTOPRAZOLE SODIUM 40 MG DR TABLET PO SCH (11:39)
[2017-06-22] MEDS: DOCUSATE SODIUM 100 MG CAPSULE PO SCH ×2 (11:39→20:30)
[2017-06-22] MEDS: CARVEDILOL 25 MG TABLET PO SCH ×2 (11:47→20:30)
[2017-06-22] MEDS: QUEtiapine FUMARATE 25 MG TABLET PO SCH ×2 (16:07→20:30)
[2017-06-22 16:14] VITALS: BP 100/59
[2017-06-22 20:30] VITALS: BP 90/68
[2017-06-23 00:48] VITALS: BP 113/79
[2017-06-23 05:53] VITALS: BP 100/59
[2017-06-23 07:41] VITALS: BP 117/64
[2017-06-23 08:04] LABS: BASOPHILS % (AUTO) 0.9 % (0.0-2.0); EOSINOPHILS % (AUTO) 1.2 % (1.0-6.0); LYMPHOCYTES % (AUTO) 44.8 % (22.0-44.0); MEAN CORPUSCULAR HEMOGLOBIN 26.8 pg (26.0-34.0); MEAN CORPUSCULAR HGB CONC 32.3 G/dL (31.0-37.0); MEAN CORPUSCULAR VOLUME 83 fL (80-100); MONOCYTES # (AUTO) 0.7 K/uL (0.1-1.0); MONOCYTES % (AUTO) 14.7 % (2.0-9.0); NEUTROPHILS # (AUTO) 1.7 K/uL (1.8-7.7); NEUTROPHILS % (AUTO) 38.4 % (40.0-70.0); PLATELET COUNT (AUTO) 205 K/uL (150-450); RED BLOOD CELL COUNT(AUTO) 4.47 MIL/uL (4.50-5.90); RED CELL DISTRIBUTION WIDTH 15.2 % (11.5-14.5)
[2017-06-23 08:32] LABS: ALANINE AMINOTRANSFERASE 82 U/L (12-78); ALBUMIN 2.7 g/dL (3.4-5.0); ALKALINE PHOSPHATASE 77 U/L (46-116); ANION GAP 10 mmol/L (8-16); ASPARTATE AMINOTRANSFERASE 49 U/L (15-37); BILIRUBIN,TOTAL 3.1 mg/dL (0.1-1.0); CALCIUM, TOTAL 8.3 mg/dL (8.8-10.5); CARBON DIOXIDE 25 mmol/L (22-29); CHLORIDE 103 mmol/L (98-107); CREATININE 1.48 mg/dL (0.60-1.30); GLOMERULAR FILTR. RATE CALC > 60 mL/min (>60); GLUCOSE,RANDOM 113 mg/dL (70-110); POTASSIUM 3.7 mmol/L (3.5-5.1); SODIUM SERUM 138 mmol/L (136-145); TOTAL PROTEIN, SERUM 6.3 g/dL (6.4-8.2); UREA NITROGEN, BLOOD 15 mg/dL (7-18)
[2017-06-23] MEDS: CARVEDILOL 25 MG TABLET PO SCH ×2 (08:51→21:17)
[2017-06-23] MEDS: LISINOPRIL 5 MG TABLET PO SCH (08:51)
[2017-06-23] MEDS: QUEtiapine FUMARATE 25 MG TABLET PO SCH ×3 (08:52→20:16)
[2017-06-23] MEDS: PANTOPRAZOLE SODIUM 40 MG DR TABLET PO SCH (08:52)
[2017-06-23] MEDS: DOCUSATE SODIUM 100 MG CAPSULE PO SCH ×2 (08:53→20:15)
[2017-06-23] MEDS: HEPARIN SODIUM,PORCINE 5,000 UNITS/ML VIAL SQ SCH ×2 (08:53→20:16)
[2017-06-23] MEDS: FUROSEMIDE 40 MG/4 ML VIAL IVP SCH ×2 (08:53→20:15)
[2017-06-23 17:58] VITALS: BP 118/80
[2017-06-23 20:45] VITALS: BP 108/70
[2017-06-24 00:30] VITALS: BP 115/72
[2017-06-24 05:45] VITALS: BP 120/76
[2017-06-24 08:29] VITALS: BP 120/72
[2017-06-24] MEDS: QUEtiapine FUMARATE 25 MG TABLET PO SCH ×3 (09:40→21:09)
[2017-06-24] MEDS: CARVEDILOL 25 MG TABLET PO SCH ×2 (09:40→21:11)
[2017-06-24] MEDS: LISINOPRIL 5 MG TABLET PO SCH (09:40)
[2017-06-24] MEDS: DOCUSATE SODIUM 100 MG CAPSULE PO SCH ×2 (09:40→21:09)
[2017-06-24] MEDS: PANTOPRAZOLE SODIUM 40 MG DR TABLET PO SCH (09:40)
[2017-06-24] MEDS: HEPARIN SODIUM,PORCINE 5,000 UNITS/ML VIAL SQ SCH ×2 (09:40→21:00)
[2017-06-24] MEDS: FUROSEMIDE 40 MG/4 ML VIAL IVP SCH (09:41)
[2017-06-24 11:55] VITALS: BP 106/64
[2017-06-24 15:38] VITALS: BP 118/61
[2017-06-24 20:14] VITALS: BP 119/59
[2017-06-25 00:16] VITALS: BP 113/68
[2017-06-25 05:40] VITALS: BP 113/64
[2017-06-25 07:23] VITALS: BP 115/63
[2017-06-25] MEDS: FUROSEMIDE 40 MG/4 ML VIAL IVP SCH ×2 (09:00→21:12)
[2017-06-25] MEDS: LISINOPRIL 10 MG TABLET PO SCH (09:00)
[2017-06-25] MEDS: HEPARIN SODIUM,PORCINE 5,000 UNITS/ML VIAL SQ SCH ×2 (09:00→21:00)
[2017-06-25] MEDS: PANTOPRAZOLE SODIUM 40 MG DR TABLET PO SCH (09:00)
[2017-06-25] MEDS: QUEtiapine FUMARATE 25 MG TABLET PO SCH ×4 (09:00→21:06)
[2017-06-25] MEDS: CARVEDILOL 25 MG TABLET PO SCH ×2 (09:00→21:06)
[2017-06-25] MEDS: DOCUSATE SODIUM 100 MG CAPSULE PO SCH ×2 (09:00→21:06)
[2017-06-25 11:11] VITALS: BP 118/70
[2017-06-25 15:26] VITALS: BP 121/62
[2017-06-25 20:01] VITALS: BP 116/66
[2017-06-26] VITALS: BP 114/65
[2017-06-26] MEDS: PANTOPRAZOLE SODIUM 40 MG DR TABLET PO SCH ×2 (08:50→13:15)
[2017-06-26] MEDS: QUEtiapine FUMARATE 25 MG TABLET PO SCH ×4 (08:50→20:55)
[2017-06-26] MEDS: DOCUSATE SODIUM 100 MG CAPSULE PO SCH ×3 (08:50→20:55)
[2017-06-26] MEDS: FUROSEMIDE 40 MG/4 ML VIAL IVP SCH ×2 (08:50→13:17)
[2017-06-26] MEDS: CARVEDILOL 25 MG TABLET PO SCH ×3 (08:50→20:55)
[2017-06-26] MEDS: HEPARIN SODIUM,PORCINE 5,000 UNITS/ML VIAL SQ SCH ×3 (08:51→21:00)
[2017-06-26] MEDS: LISINOPRIL 10 MG TABLET PO SCH ×2 (08:51→13:15)
[2017-06-26 12:24] VITALS: BP 128/84
[2017-06-26 15:59] VITALS: BP 111/70
[2017-06-26 20:16] VITALS: BP 143/82
[2017-06-27 00:13] VITALS: BP 126/73
[2017-06-27 04:02] VITALS: BP 128/71
[2017-06-27 07:21] VITALS: BP 130/74
[2017-06-27] MEDS: LISINOPRIL 10 MG TABLET PO SCH (08:35)
[2017-06-27] MEDS: QUEtiapine FUMARATE 25 MG TABLET PO SCH ×3 (08:35→20:06)
[2017-06-27] MEDS: PANTOPRAZOLE SODIUM 40 MG DR TABLET PO SCH (08:35)
[2017-06-27] MEDS: CARVEDILOL 25 MG TABLET PO SCH ×2 (08:36→20:06)
[2017-06-27] MEDS: FUROSEMIDE 40 MG/4 ML VIAL IVP SCH ×2 (08:36→08:40)
[2017-06-27] MEDS: DOCUSATE SODIUM 100 MG CAPSULE PO SCH ×2 (08:36→20:06)
[2017-06-27] MEDS: HEPARIN SODIUM,PORCINE 5,000 UNITS/ML VIAL SQ SCH ×3 (08:36→20:06)
[2017-06-27 11:31] VITALS: BP 123/74
[2017-06-27 15:44] VITALS: BP 118/72
[2017-06-27 19:11] VITALS: BP_SYST 119; BP_SYST 126; BP_DIAS 77
[2017-06-28] VITALS (7 sets, daily range): BP systolic 101–128; BP diastolic 54–79
[2017-06-28] MEDS: HEPARIN SODIUM,PORCINE 5,000 UNITS/ML VIAL SQ SCH ×3 (09:00→20:33)
[2017-06-28] MEDS: QUEtiapine FUMARATE 25 MG TABLET PO SCH ×3 (09:44→20:31)
[2017-06-28] MEDS: DOCUSATE SODIUM 100 MG CAPSULE PO SCH ×2 (09:44→20:31)
[2017-06-28] MEDS: FUROSEMIDE 40 MG/4 ML VIAL IVP SCH (09:44)
[2017-06-28] MEDS: CARVEDILOL 25 MG TABLET PO SCH ×2 (09:44→20:31)
[2017-06-28] MEDS: PANTOPRAZOLE SODIUM 40 MG DR TABLET PO SCH (09:44)
[2017-06-28] MEDS: LISINOPRIL 10 MG TABLET PO SCH (09:44)
[2017-06-29 04:09] VITALS: BP 97/55
[2017-06-29 07:51] VITALS: BP 97/68
[2017-06-29] MEDS: CARVEDILOL 25 MG TABLET PO SCH ×2 (09:00→19:54)
[2017-06-29] MEDS: FUROSEMIDE 40 MG/4 ML VIAL IVP SCH (09:00)
[2017-06-29] MEDS: LISINOPRIL 10 MG TABLET PO SCH (09:00)
[2017-06-29] MEDS: HEPARIN SODIUM,PORCINE 5,000 UNITS/ML VIAL SQ SCH ×2 (09:00→21:00)
[2017-06-29] MEDS: DOCUSATE SODIUM 100 MG CAPSULE PO SCH ×2 (11:14→19:54)
[2017-06-29] MEDS: QUEtiapine FUMARATE 25 MG TABLET PO SCH ×3 (11:15→19:54)
[2017-06-29] MEDS: PANTOPRAZOLE SODIUM 40 MG DR TABLET PO SCH (11:15)
[2017-06-29 11:47] VITALS: BP 109/66
[2017-06-29 15:25] LABS: HEMATOCRIT 39.2 % (41-53); HEMOGLOBIN 12.4 g/dL (13.5-17.5); MEAN CORPUSCULAR HEMOGLOBIN 26.1 pg (26.0-34.0); MEAN CORPUSCULAR HGB CONC 31.6 G/dL (31.0-37.0); MEAN CORPUSCULAR VOLUME 82 fL (80-100); PLATELET COUNT (AUTO) 236 K/uL (150-450); RED BLOOD CELL COUNT(AUTO) 4.75 MIL/uL (4.50-5.90)
[2017-06-29 15:30] LABS: CALCIUM, TOTAL 8.4 mg/dL (8.8-10.5); CREATININE 1.59 mg/dL (0.60-1.30); POTASSIUM 4.3 mmol/L (3.5-5.1)
[2017-06-29 15:31] LABS: MAGNESIUM 1.8 mg/dL (1.80-2.40)
[2017-06-29 15:44] LABS: BAND NEUTROPHILS % (MANUAL) 0 % (0-5)
[2017-06-29 15:56] LABS: BASOPHILS % (MANUAL) 1 % (0-2); LYMPHOCYTES % (MANUAL) 51 % (22-44); MONOCYTES % (MANUAL) 19 % (2-9); SEGMENTED NEUTROPHILS % 29 % (40-70)
[2017-06-29 19:57] VITALS: BP 117/77
[2017-06-29 23:56] VITALS: BP 157/71
[2017-06-30 08:30] VITALS: BP 149/103
[2017-06-30] MEDS: HEPARIN SODIUM,PORCINE 5,000 UNITS/ML VIAL SQ SCH ×2 (09:00→09:50)
[2017-06-30] MEDS: FUROSEMIDE 40 MG/4 ML VIAL IVP SCH (09:47)
[2017-06-30] MEDS: DOCUSATE SODIUM 100 MG CAPSULE PO SCH (09:47)
[2017-06-30] MEDS: PANTOPRAZOLE SODIUM 40 MG DR TABLET PO SCH (09:48)
[2017-06-30] MEDS: CARVEDILOL 25 MG TABLET PO SCH (09:48)
[2017-06-30] MEDS: QUEtiapine FUMARATE 25 MG TABLET PO SCH (09:49)
[2017-06-30] MEDS: LISINOPRIL 10 MG TABLET PO SCH (09:50)
[2017-06-30 12:32] VITALS: BP 135/65
== END 2017-06-30 15:30 | disposition home or self-care (01) | DRG 469 ==
LOC: EMS 23:47 → 5N 06-21 01:55 → UNDOADMIN 06-21 01:55 → 6N 06-28 14:15
PROVIDERS: ADMIT Internal Medicine; ATTEND Internal Medicine
PROC: 5A09357 Assistance with Respiratory Ventilation, Less than 24 Consecutive Hours, Continuous Positive Airway Pressure (ICD-10-PCS; principal; 2017-06-21)
DX: N17.9 Acute kidney failure, unspecified (principal); J96.00 Acute respiratory failure, unspecified whether with hypoxia or hypercapnia; I47.2 Ventricular tachycardia; I50.21 Acute systolic (congestive) heart failure; R17 Unspecified jaundice; R04.2 Hemoptysis; E66.01 Morbid (severe) obesity due to excess calories; F20.9 Schizophrenia, unspecified; I13.0 Hypertensive heart and chronic kidney disease with heart failure and stage 1 through stage 4 chronic kidney disease, or unspecified chronic kidney disease; N18.3 Chronic kidney disease, stage 3 (moderate); F31.9 Bipolar disorder, unspecified; F17.210 Nicotine dependence, cigarettes, uncomplicated; D63.8 Anemia in other chronic diseases classified elsewhere; F12.90 Cannabis use, unspecified, uncomplicated; R74.0 Nonspecific elevation of levels of transaminase and lactic acid dehydrogenase [LDH]; Z91.19 Patient's noncompliance with other medical treatment and regimen; Z88.0 Allergy status to penicillin; Z79.899 Other long term (current) drug therapy; Z68.35 Body mass index [BMI] 35.0-35.9, adult
CPT/HCPCS: 76700; 80074; 83735; 84100; 84132; 84145; 87015; 87070; 87081; 87205; 93005; 93306; 93970; 94660; 96374; 99291; J1644; J1940; J2405; J7040

== ENCOUNTER 2017-07-07 16:32 | Inpatient (IN) | payer MEDICAID ==
[~2017-07-07] VITALS: Ht 193 cm; Wt 146.7 kg
[2017-07-07] MEDS ORDERED: LORazepam 2 MG/ML VIAL IM ONE ×2 (16:45→20:15)
[2017-07-07] MEDS ORDERED: DiphenhydrAMINE HCL 50 MG/ML VIAL IM ONE ×2 (16:45→20:15)
[2017-07-07] MEDS ORDERED: HALOPERIDOL LACTATE 5 MG/ML VIAL IM ONE ×2 (16:45→20:15)
[2017-07-07] MEDS ORDERED: DiphenhydrAMINE HCL 50 MG/ML VIAL ONE (16:48)
[2017-07-07] MEDS ORDERED: HALOPERIDOL LACTATE 5 MG/ML VIAL ONE (16:48)
[2017-07-07] MEDS ORDERED: LORazepam 2 MG/ML VIAL ONE (16:48)
[2017-07-07] MEDS ORDERED: LORazepam 2 MG TABLET ONE (16:58)
[2017-07-07] MEDS ORDERED: HALOPERIDOL 5 MG TABLET ONE (16:58)
[2017-07-07] MEDS ORDERED: DiphenhydrAMINE HCL 50 MG CAPSULE ONE (16:58)
[2017-07-07] MEDS ORDERED: HALOPERIDOL 5 MG TABLET PO ONE ×3 (17:00→17:15)
[2017-07-07] MEDS ORDERED: DiphenhydrAMINE HCL 25 MG CAPSULE PO ONE (17:00)
[2017-07-07] MEDS ORDERED: LORazepam 2 MG TABLET PO ONE (17:00)
[2017-07-07 18:04] LABS: BASOPHILS % (AUTO) 1.3 % (0.0-2.0); EOSINOPHILS % (AUTO) 0.2 % (1.0-6.0); HEMATOCRIT 39.2 % (41-53); HEMOGLOBIN 12.6 g/dL (13.5-17.5); LYMPHOCYTES # (AUTO) 2.1 K/uL (1.0-4.8); LYMPHOCYTES % (AUTO) 35.9 % (22.0-44.0); MEAN CORPUSCULAR HGB CONC 32.1 G/dL (31.0-37.0); MEAN CORPUSCULAR VOLUME 81 fL (80-100); MONOCYTES # (AUTO) 0.9 K/uL (0.1-1.0); MONOCYTES % (AUTO) 16.4 % (2.0-9.0); NEUTROPHILS # (AUTO) 2.7 K/uL (1.8-7.7); NEUTROPHILS % (AUTO) 46.2 % (40.0-70.0); PLATELET COUNT (AUTO) 216 K/uL (150-450); RED BLOOD CELL COUNT(AUTO) 4.84 MIL/uL (4.50-5.90); RED CELL DISTRIBUTION WIDTH 16.5 % (11.5-14.5)
[2017-07-07 18:07] LABS: ANION GAP 12 mmol/L (8-16); CALCIUM, TOTAL 9.6 mg/dL (8.8-10.5); CARBON DIOXIDE 25 mmol/L (22-29); CHLORIDE 102 mmol/L (98-107); CREATININE 1.72 mg/dL (0.60-1.30); GLOMERULAR FILTR. RATE CALC 54 mL/min (>60); GLUCOSE,RANDOM 82 mg/dL (70-110); POTASSIUM 4.4 mmol/L (3.5-5.1); SODIUM SERUM 139 mmol/L (136-145); UREA NITROGEN, BLOOD 20 mg/dL (7-18)
[2017-07-07 18:13] LABS: ALANINE AMINOTRANSFERASE 72 U/L (12-78); ALBUMIN 3.6 g/dL (3.4-5.0); ALKALINE PHOSPHATASE 75 U/L (46-116); ASPARTATE AMINOTRANSFERASE 73 U/L (15-37); BILIRUBIN,TOTAL 4.6 mg/dL (0.1-1.0); TOTAL PROTEIN, SERUM 7.6 g/dL (6.4-8.2)
[2017-07-07 18:35] LABS: AMPHET/METH SCREEN,URINE POSITIVE (NEGATIVE); BARBITURATE SCREEN, URINE NEGATIVE (NEGATIVE); BENZODIAZEPINES SCREEN,URINE NEGATIVE (NEGATIVE); CANNABINOID SCREEN,URINE POSITIVE (NEGATIVE); COCAINE SCREEN,URINE NEGATIVE (NEGATIVE); METHADONE SCREEN, URINE NEGATIVE (NEGATIVE); OPIATE SCREEN,URINE NEGATIVE (NEGATIVE)
[2017-07-07 18:36] LABS: PHENCYCLIDINE SCREEN,URINE NEGATIVE (NEGATIVE)
[2017-07-07] MEDS ORDERED: LORazepam 2 MG TABLET PO PRN (19:45)
[2017-07-07] MEDS ORDERED: ZOLPIDEM TARTRATE 10 MG TABLET PO PRN (19:45)
[2017-07-07] MEDS ORDERED: HALOPERIDOL 5 MG TABLET PO PRN (19:45)
[2017-07-07 19:55] LABS: APPEARANCE,URINE CLOUDY (CLEAR); GLUCOSE, URINE (UA) NEGATIVE (NEGATIVE); KETONES,URINE NEGATIVE (NEGATIVE); LEUKOCYTE ESTERASE ,URINE TRACE (NEGATIVE); NITRATE,URINE NEGATIVE (NEGATIVE); OCCULT BLOOD,URINE NEGATIVE (NEGATIVE); PH,URINE 5.5 (5.0-8.0); PROTEIN,URINE SEE CONFIRM (NEGATIVE)
[2017-07-07 20:14] LABS: BILIRUBIN,URINE PRELIM. POSITIVE (NEGATIVE)
[2017-07-07 20:27] LABS: SULFOSALICYLIC ACID,URINE 4+ (Negative)
[2017-07-07 20:28] LABS: BACTERIA,URINE Few /HPF (None Seen); RBC,URINE None Seen /HPF (0-2)
[2017-07-07 20:30] LABS: SQUAMOUS EPITHELIAL CELL,UR Rare /LPF (None Seen)
[2017-07-07 20:32] LABS: HYALINE CASTS, URINE 26-50 /LPF (None Seen)
[2017-07-07 20:33] LABS: FINE GRANULAR CASTS,URINE 0-2 /LPF (None Seen)
[2017-07-08 19:17] VITALS: BP 147/89
[2017-07-09] MEDS ORDERED: PNEUMOCOCCAL VACCINE POLYVALENT 0.5 ML VIAL [PPSV23] IM ONE (05:45)
[2017-07-09 09:02] VITALS: BP 115/56
[2017-07-09] MEDS: CARVEDILOL 12.5 MG TABLET PO SCH ×2 (09:38→18:17)
[2017-07-09] MEDS: FUROSEMIDE 40 MG TABLET PO SCH (09:39)
[2017-07-09] MEDS: LISINOPRIL 10 MG TABLET PO SCH (09:39)
[2017-07-09] MEDS: QUEtiapine FUMARATE 200 MG TABLET PO SCH ×2 (12:56→18:17)
[2017-07-09 16:30] VITALS: BP 105/68
[2017-07-10 08:41] VITALS: BP 123/88
[2017-07-10] MEDS: CARVEDILOL 12.5 MG TABLET PO SCH ×2 (09:03→17:28)
[2017-07-10] MEDS: FUROSEMIDE 40 MG TABLET PO SCH (09:03)
[2017-07-10] MEDS: QUEtiapine FUMARATE 200 MG TABLET PO SCH ×3 (09:03→17:29)
[2017-07-10] MEDS: LISINOPRIL 10 MG TABLET PO SCH (09:03)
[2017-07-11 09:19] VITALS: BP 125/65
[2017-07-11] MEDS: QUEtiapine FUMARATE 200 MG TABLET PO SCH ×3 (09:26→17:36)
[2017-07-11] MEDS: LISINOPRIL 10 MG TABLET PO SCH (09:26)
[2017-07-11] MEDS: CARVEDILOL 12.5 MG TABLET PO SCH ×2 (09:26→17:36)
[2017-07-11] MEDS: FUROSEMIDE 40 MG TABLET PO SCH (09:26)
[2017-07-11 17:08] VITALS: BP 113/78
[2017-07-12 08:17] VITALS: BP 121/73
[2017-07-12] MEDS: LISINOPRIL 10 MG TABLET PO SCH (08:25)
[2017-07-12] MEDS: FUROSEMIDE 40 MG TABLET PO SCH (08:25)
[2017-07-12] MEDS: QUEtiapine FUMARATE 200 MG TABLET PO SCH ×2 (08:25→12:06)
[2017-07-12] MEDS: CARVEDILOL 12.5 MG TABLET PO SCH (08:25)
== END 2017-07-12 14:30 | disposition home or self-care (01) | DRG 750 ==
LOC: EMS 16:34 → 3EC 07-08 18:24
PROVIDERS: ADMIT Psychiatry & Neurology Child & Adolescent Psychiatry; ATTEND Psychiatry & Neurology Child & Adolescent Psychiatry
DX: F25.0 Schizoaffective disorder, bipolar type (principal); I11.0 Hypertensive heart disease with heart failure; E46 Unspecified protein-calorie malnutrition; I50.9 Heart failure, unspecified; Z78.1 Physical restraint status; Z88.0 Allergy status to penicillin; D64.9 Anemia, unspecified; F12.90 Cannabis use, unspecified, uncomplicated; F15.90 Other stimulant use, unspecified, uncomplicated; F17.200 Nicotine dependence, unspecified, uncomplicated; I13.0 Hypertensive heart and chronic kidney disease with heart failure and stage 1 through stage 4 chronic kidney disease, or unspecified chronic kidney disease; N18.9 Chronic kidney disease, unspecified; Z79.899 Other long term (current) drug therapy; Z91.14 Patient's other noncompliance with medication regimen; R79.89 Other specified abnormal findings of blood chemistry
CPT/HCPCS: 87081; 96372; 99291; G0480; J1200; J1630; J2060

== ENCOUNTER 2017-08-07 04:52 | Emergency (ER) | payer MEDICAID ==
[~2017-08-07] VITALS: Ht 193 cm; Wt 100.0 kg
[2017-08-07 05:22] VITALS: BP 140/92
[2017-08-07 07:53] LABS: AMPHET/METH SCREEN,URINE POSITIVE (NEGATIVE); BARBITURATE SCREEN, URINE NEGATIVE (NEGATIVE); BENZODIAZEPINES SCREEN,URINE NEGATIVE (NEGATIVE); CANNABINOID SCREEN,URINE POSITIVE (NEGATIVE); COCAINE SCREEN,URINE NEGATIVE (NEGATIVE); METHADONE SCREEN, URINE NEGATIVE (NEGATIVE); OPIATE SCREEN,URINE NEGATIVE (NEGATIVE)
[2017-08-07 08:03] LABS: PHENCYCLIDINE SCREEN,URINE NEGATIVE (NEGATIVE)
== END 2017-08-07 08:18 | disposition left against medical advice (07) ==
LOC: EMS 04:52
DX: Z53.21 Procedure and treatment not carried out due to patient leaving prior to being seen by health care provider (principal)

== ENCOUNTER 2017-09-06 00:08 | Inpatient (IN) | payer MEDICAID ==
[~2017-09-06] VITALS: Ht 193 cm; Wt 130.9 kg
[2017-09-06 01:12] LABS: BASOPHILS % (AUTO) 1.4 % (0.0-2.0); EOSINOPHILS % (AUTO) 0.6 % (1.0-6.0); HEMATOCRIT 39.3 % (41-53); HEMOGLOBIN 12.9 g/dL (13.5-17.5); LYMPHOCYTES # (AUTO) 1.2 K/uL (1.0-4.8); LYMPHOCYTES % (AUTO) 22.5 % (22.0-44.0); MEAN CORPUSCULAR HEMOGLOBIN 27.2 pg (26.0-34.0); MEAN CORPUSCULAR HGB CONC 32.8 G/dL (31.0-37.0); MEAN CORPUSCULAR VOLUME 83 fL (80-100); MONOCYTES # (AUTO) 0.7 K/uL (0.1-1.0); MONOCYTES % (AUTO) 13.7 % (2.0-9.0); NEUTROPHILS # (AUTO) 3.2 K/uL (1.8-7.7); NEUTROPHILS % (AUTO) 61.8 % (40.0-70.0); PLATELET COUNT (AUTO) 193 K/uL (150-450); RED BLOOD CELL COUNT(AUTO) 4.74 MIL/uL (4.50-5.90); RED CELL DISTRIBUTION WIDTH 19.5 % (11.5-14.5)
[2017-09-06 01:24] LABS: AMPHET/METH SCREEN,URINE POSITIVE (NEGATIVE); BARBITURATE SCREEN, URINE NEGATIVE (NEGATIVE); BENZODIAZEPINES SCREEN,URINE NEGATIVE (NEGATIVE); CANNABINOID SCREEN,URINE POSITIVE (NEGATIVE); COCAINE SCREEN,URINE POSITIVE (NEGATIVE); METHADONE SCREEN, URINE NEGATIVE (NEGATIVE); OPIATE SCREEN,URINE NEGATIVE (NEGATIVE)
[2017-09-06 01:26] LABS: ANION GAP 8 mmol/L (8-16); CALCIUM, TOTAL 8.5 mg/dL (8.8-10.5); CARBON DIOXIDE 29 mmol/L (22-29); CHLORIDE 100 mmol/L (98-107); GLOMERULAR FILTR. RATE CALC > 60 mL/min (>60); GLUCOSE,RANDOM 98 mg/dL (70-110); POTASSIUM 3.9 mmol/L (3.5-5.1); SODIUM SERUM 137 mmol/L (136-145); UREA NITROGEN, BLOOD 19 mg/dL (7-18)
[2017-09-06 01:27] LABS: PHENCYCLIDINE SCREEN,URINE NEGATIVE (NEGATIVE)
[2017-09-06 01:33] LABS: ALANINE AMINOTRANSFERASE 53 U/L (12-78); ALBUMIN 3.2 g/dL (3.4-5.0); ALKALINE PHOSPHATASE 84 U/L (46-116); ASPARTATE AMINOTRANSFERASE 77 U/L (15-37); BILIRUBIN,TOTAL 3.8 mg/dL (0.1-1.0); TOTAL PROTEIN, SERUM 7.7 g/dL (6.4-8.2)
[2017-09-06] MEDS ORDERED: MAG HYDROX/AL HYDROX/SIMETH ES 30 ML SUSPENSION UDCUP PO PRN (02:00)
[2017-09-06] MEDS ORDERED: ACETAMINOPHEN 325 MG TABLET PO PRN (02:00)
[2017-09-06] MEDS ORDERED: MAGNESIUM HYDROXIDE SUSPENSION 30 ML UDCUP PO PRN (02:00)
[2017-09-06] MEDS ORDERED: ZOLPIDEM TARTRATE 10 MG TABLET PO PRN (02:00)
[2017-09-06 06:03] VITALS: BP 140/86
[2017-09-06] MEDS ORDERED: PNEUMOCOCCAL VACCINE POLYVALENT 0.5 ML VIAL [PPSV23] IM ONE (06:15)
[2017-09-06 08:45] VITALS: BP 131/72
[2017-09-06] MEDS: HALOPERIDOL 5 MG TABLET PO PRN (09:23)
[2017-09-06] MEDS: LORazepam 2 MG TABLET PO PRN (11:21)
[2017-09-06] MEDS: QUEtiapine FUMARATE 200 MG TABLET PO SCH ×2 (12:55→17:21)
[2017-09-06 22:23] VITALS: BP 132/70
[2017-09-07 03:32] VITALS: BP 129/86
[2017-09-07] MEDS: HALOPERIDOL 5 MG TABLET PO PRN (10:35)
[2017-09-07] MEDS: QUEtiapine FUMARATE 200 MG TABLET PO SCH ×3 (10:35→16:31)
[2017-09-07] MEDS: LORazepam 2 MG TABLET PO PRN (10:35)
[2017-09-08 09:08] VITALS: BP 111/84
[2017-09-08] MEDS: QUEtiapine FUMARATE 200 MG TABLET PO SCH ×3 (10:14→16:44)
[2017-09-08 16:41] VITALS: BP 99/61
[2017-09-09] MEDS: QUEtiapine FUMARATE 200 MG TABLET PO SCH ×3 (08:34→17:19)
[2017-09-09 13:56] VITALS: BP 130/94
[2017-09-09 22:31] VITALS: BP 128/90
[2017-09-10] MEDS ORDERED: QUET200T PO (09:38)
[2017-09-10] MEDS: QUEtiapine FUMARATE 200 MG TABLET PO SCH ×2 (09:59→13:15)
== END 2017-09-10 12:00 | disposition home or self-care (01) | DRG 750 ==
LOC: EMS 00:08 → 3EI 05:05
PROVIDERS: ADMIT Psychiatry & Neurology Psychiatry; ATTEND Psychiatry & Neurology Psychiatry
DX: F20.0 Paranoid schizophrenia (principal); I95.9 Hypotension, unspecified; I11.0 Hypertensive heart disease with heart failure; B18.1 Chronic viral hepatitis B without delta-agent; E83.51 Hypocalcemia; I50.9 Heart failure, unspecified; R45.851 Suicidal ideations; G40.909 Epilepsy, unspecified, not intractable, without status epilepticus; D64.9 Anemia, unspecified; F31.9 Bipolar disorder, unspecified; F41.9 Anxiety disorder, unspecified; R45.87 Impulsiveness; F10.10 Alcohol abuse, uncomplicated; F12.90 Cannabis use, unspecified, uncomplicated; F14.90 Cocaine use, unspecified, uncomplicated; F17.210 Nicotine dependence, cigarettes, uncomplicated; F15.90 Other stimulant use, unspecified, uncomplicated; Z88.0 Allergy status to penicillin; Z91.5 Personal history of self-harm; Z28.21 Immunization not carried out because of patient refusal
CPT/HCPCS: 99285; G0480